=== PATIENT | male | born 1975 | race Caucasian/White ===

== ENCOUNTER 2017-01-28 13:25 | Outpatient (CLI) | payer OTHER ==
[2017-01-28] MEDS ORDERED: BUFFERED LIDOCAINE 10 ML SYRINGE IU ONE (14:19)
[2017-01-28] MEDS ORDERED: GADOPENTETATE DIMEGLUMINE 5 ML VIAL IVP ONE (14:19)
[2017-01-28] MEDS ORDERED: LIDOCAINE 1% 50 ML MDV SUBQ ONE (14:19)
[2017-01-28] MEDS ORDERED: IOTHALAMATE MEGLUMINE 50 ML VIAL IVP ONE (14:19)
--- NOTE | 2017-01-28 16:00 | MRI Report ---
EXAM: RIGHT SHOULDER MRI ARTHROGRAM WITH CONTRAST EXAM DATE: 01/28/2017 02:48 PM. CLINICAL HISTORY: Right shoulder pain post injury August 2016. Fell while bowling. COMPARISON: None. TECHNIQUE: Multiplanar, multisequence T1-weighted and fluid-sensitive sequences of the shoulder after an arthrographic injection of dilute gadolinium, dictated under a separate exam. Other: None. FINDINGS: Acromioclavicular Region: The acromion is type II. The acromioclavicular joint is unremarkable. Ther e is no contrast or fluid in the subacromial/subdeltoid bursa. Glenohumeral Region: No subluxation. No loose bodies. The articular cartilage is unremarkable. The gl enohumeral ligaments and joint capsule are unremarkable. Bone Marrow: No fracture, marrow edema or bone lesions. Labrum: The labrum is unremarkable. Biceps Tendon: The long head of the biceps tendon and biceps julius are intact. Musculature/Rotator Cuff: There is mildly increased T2 signal in supraspinatus consistent with mild t endinosis. Infraspinatus and subscapularis appear normal. Other: The subcutaneous tissues are unremarkable. IMPRESSION: Minimal supraspinatus tendinosis. Otherwise normal. [facility] MUSCULOSKE[facility]IOLOG[facility] SECTION Referring Provider Line: [phone] SITE ID: [id number]
--- NOTE | 2017-01-28 17:14 | XRAY Report ---
FLUOROSCOPICALLY-GUIDED RIGHT SHOULDER INJECTION FOR MR ARTHROGRAM: 01/28/2017 CLINICAL INDICATION: Pain. Following obtaining informed consent, the patient's right shoulder was prepped and draped in the usua l sterile fashion. The skin and soft tissues were anesthetized with lidocaine. A spinal needle was inserted into the right glenohumeral joint, and following confirmation of needle positioning, a combi nation of iodinated contrast, dilute gadolinium, and lidocaine was injected intraarticularly. The pa tient tolerated the procedure well. No immediate complications. Spot image reveals no evidence of c ontrast extravasation. IMPRESSION: SUCCESSFUL RIGHT SHOULDER INJECTION FOR MR ARTHROGRAM. FLUOROSCOPY TIME: 29 seconds; one spot image obtained. JOB #: [id number] JOB #:[id number]
== END 2017-01-28 13:26 | disposition home or self-care (01) ==
LOC: DI 13:25
PROVIDERS: ATTEND Pediatrics
DX: M75.91 Shoulder lesion, unspecified, right shoulder (principal)
CPT/HCPCS: 23350; 73222; 77002; Q9961